=== PATIENT | female | born 1980 | race Caucasian/White ===

== ENCOUNTER 2022-09-09 11:02 | Outpatient (CLI) | payer BC ==
[2022-09-09 20:38] LABS: BASOPHILS # (AUTO) 0.1 10^3/uL (0.0-0.1); BASOPHILS % (AUTO) 0.8 %; EOSINOPHILS # (AUTO) 0.1 10^3/uL (0.0-0.7); EOSINOPHILS % (AUTO) 1.3 %; HCT - HEMATOCRIT 35.9 % (37.0-47.0); HGB - HEMOGLOBIN 11.1 g/dL (12.0-16.0); LYMPHOCYTES # (AUTO) 2.3 10^3/uL (1.5-3.5); LYMPHOCYTES % (AUTO) 21.1 %; MEAN CORPUSCULAR HEMOGLOBIN 27.5 pg (27.0-31.0); MEAN CORPUSCULAR HGB CONC 30.9 g/dL (32.0-36.0); MEAN CORPUSCULAR VOLUME 88.9 fL (81.0-99.0); MEAN PLATELET VOLUME 12.7 fL (7.9-10.8); MONOCYTES # (AUTO) 0.8 10^3/uL (0.0-1.0); MONOCYTES % (AUTO) 7.6 %; NEUTROPHILS # (AUTO) 7.3 10^3/uL (1.5-6.6); NEUTROPHILS % (AUTO) 68.3 %; PLT - PLATELET COUNT 267 10^3/uL (130-450); RED BLOOD COUNT 4.04 10^6/uL (4.20-5.40); WHITE BLOOD COUNT 10.7 x10^3/uL (4.8-10.8)
[2022-09-09 20:59] LABS: ALBUMIN 3.3 g/dL (3.2-5.5); ALBUMIN/GLOBULIN RATIO 0.9 (1.0-2.2); BILIRUBIN,TOTAL 0.2 mg/dL (0.2-1.0); CALCIUM 9.1 mg/dL (8.5-10.3); CREATININE 0.6 mg/dL (0.6-1.3); POTASSIUM 4.1 mmol/L (3.5-4.5); TOTAL PROTEIN 6.8 g/dL (6.4-8.9); URIC ACID 3.6 mg/dL (2.3-6.6)
[2022-09-09 21:04] LABS: CREATININE,URINE 47.3 mg/dL; PROTEIN/CREATININE RATIO,URINE 0.3 (<=0.2)
== END 2022-09-09 11:03 | disposition home or self-care (01) ==
LOC: LAB.S 11:02
DX: O13.9 Gestational [pregnancy-induced] hypertension without significant proteinuria, unspecified trimester (principal)
CPT/HCPCS: 36415; 80053; 82570; 84156; 84550; 85025

== ENCOUNTER 2022-09-12 15:08 | Inpatient (IN) | payer BC ==
--- NOTE | 2022-09-12 15:46 | HISTORY & PHYSICAL EXAMINATION ---
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 She is managed by a licensed club manager and water broke around 0230 this morning. She been pushing since around 4:00 this morning, but contractions have spaced and she is not making enough descent. She has good movement. No FONTANA/BV or RUQP. No vaginal bleeding. Denies nausea and vomiting. Denies urinary urgency or dysuria. All other symptoms reviewed and were negative except per HPI. Course records pending. Denies significant complications. PMH Denies significant medical complications PSH eye surgery as a child OB History G1, P0 SH Denies tobacco, alcohol, drugs Family History Noncontributory Allergies No known drug allergies Medications vitamins Physical exam: General: Alert, oriented, no acute distress Head: Normal cephalic atraumatic Eyes: PERRLA, extraocular motions intact. Respiratory: Normal rate of respiration. No accessory muscle use, normal respiratory effort. Cardiovascular: Regular rate and rhythm Abdomen: Gravid, nontender, nondistended Extremities: Normal range of motion Neuro: Oriented x3. Normal movements Psych: Appropriate mood and affect. Normal judgment and insight SVE: 10/100/+1 FHT: 150 beats per baseline, moderate variability, repetitive late decelerations [place]: 2 to 5 minutes Plan 42-year-old G1, P0 at 42 weeks 5 days gestation with prolonged second stage 1. Prolonged second stage: -Patient pushing for approximately 10 hours -Too high for operative vaginal delivery -Recommended primary low-transverse section. -2 g cefazolin, 500 mg azithromycin preoperatively. -Admit to L&D, plan for spinal anesthesia, admit labs. - section was recommended. Risks, benefits and alternatives were discussed including but not limited to infection, bleeding that may require blood products or hysterectomy for life saving measures, injury to surrounding organs including but not limited to bowel, bladder, ureters, tubes and ovaries and/or the baby. Should injury occur it could require longer/additional surgery to repair. The patient stated understanding and desired to proceed. All questions were answered posed by patient. 2. Category 2 tracing -Unsure how long her category 2 tracing has been going on prior to delivery. Contractions too frequent for oxytocin. head too high for operative delivery. We discussed options including expectant management, but limited interventions to fix repetitive late decelerations. Recommended section while baby still has good variability. 3. 42 weeks gestation - records pending 4. Advanced maternal age 5. GBS unknown 6. Meconium stained fluid Plan for Labor - Plan For Labor I expect patient to be DC'd or transferred within 96 hours.: Yes
[2022-09-12] MEDS ORDERED: LACTATED RINGERS 1,000 ML IV PRN (15:47)
[2022-09-12] MEDS ORDERED: TERBUTALINE 1 MG/ML VIAL SUBQ PRN (15:47)
[2022-09-12] MEDS ORDERED: miSOPROStoL 200 MCG TABLET PR PRN (15:47)
[2022-09-12] MEDS ORDERED: lidocaine 1% 20 ML MDV ID PRN (15:47)
[2022-09-12] MEDS ORDERED: SODIUM CHLORIDE FLUSH 0.9% 10 ML SYRINGE IVP PRN ×2 (15:47→20:27)
[2022-09-12] MEDS ORDERED: CARBOPROST TROMETHAMINE 250 MCG/ML AMP IM PRN (15:47)
[2022-09-12] MEDS ORDERED: OXYTOCIN/SODIUM CHLORIDE 500 ML IV PRN ×2 (15:47→20:27)
[2022-09-12] MEDS ORDERED: OXYTOCIN 10 UNIT/ML VIAL IM PRN (15:47)
[2022-09-12] MEDS ORDERED: NIFEdipine 10 MG CAPSULE PO PRN (15:47)
[2022-09-12] MEDS ORDERED: hydrALAZINE INJ 20 MG/ML VIAL IVP PRN ×2 (15:47)
[2022-09-12] MEDS ORDERED: METHYLERGONOVINE 0.2 MG/ML VIAL IM PRN (15:47)
[2022-09-12] MEDS ORDERED: fentaNYL 100 MCG/2 ML VIAL IVP PRN ×2 (15:47→16:54)
[2022-09-12] MEDS ORDERED: LABETALOL 20 MG/4 ML SYRINGE IVP PRN ×3 (15:47)
[2022-09-12] MEDS ORDERED: TRANEXAMIC ACID IN NACL 1,000 MG/100 ML BAG IV PRN (15:47)
[2022-09-12] MEDS ORDERED: miSOPROStoL 200 MCG TABLET BC PRN (15:47)
[2022-09-12] MEDS ORDERED: SODIUM CHLORIDE 0.9% 10 ML VIAL IVP ONE (15:58)
[2022-09-12] MEDS ORDERED: PHENYLEPHRINE 10 MG/ML VIAL ONE (15:58)
[2022-09-12] MEDS ORDERED: ePHEDrine 50 MG/ML VIAL IVP ONE (15:59)
[2022-09-12] MEDS ORDERED: SODIUM CHLORIDE FLUSH 0.9% 10 ML SYRINGE IVP SCH (16:00)
[2022-09-12] MEDS ORDERED: AZITHROMYCIN INJ 500 MG in SODIUM CHLORIDE 0.9% 250 ML IV ONE (16:00)
[2022-09-12] MEDS ORDERED: ceFAZolin 2 GM in SODIUM CHLORIDE 0.9% MINIBAG 100 ML IV SCH (16:00)
[2022-09-12] MEDS ORDERED: LACTATED RINGERS 1,000 ML IV SCH ×4 (16:00→21:00)
[2022-09-12] MEDS ORDERED: MORPHINE PF 5 MG/10 ML VIAL ONE (16:12)
--- NOTE | 2022-09-12 16:12 | ANESTHESIA ---
Pre-Anesthesia VS, & Labs - Diagnosis failure to progress - Procedure primary c/s - NPO Last Fluid Intake: t/o day - Is Patient ?: Yes - Lab Results Lab results reviewed: Yes Home Medications and Allergies Active Medications Carboprost Tromethamine (Carboprost Tromethamine 250 Mcg/Ml Amp) 250 mcg IM .ONCE PRN PRN Reason: Hemorrhage Fentanyl (Fentanyl 100 Mcg/2 Ml Vial) 50 mcg IVP Q1H PRN PRN Reason: Severe Pain (score 7-10) Hydralazine HCl (Hydralazine Inj 20 Mg/Ml Vial) 10 mg IVP .ONCE PRN; Protocol PRN Reason: SBP> or= 160 OR DBP> or= 110 Hydralazine HCl (Hydralazine Inj 20 Mg/Ml Vial) 5 - 10 mg IVP Q20M PRN; Protocol PRN Reason: SBP> or= 160 OR DBP> or= 110 Lactated Ringer's (Lr) 1,000 mls @ 125 mls/hr IV .Q8H ANDI Cefazolin Sodium 2 gm/ Sodium (Chloride) 100 mls @ 200 mls/hr IV Q8H ANDI Azithromycin 500 mg/ Sodium (Chloride) 250 mls @ 250 mls/hr IV ONCE ANDI Oxytocin/Sodium Chloride (Pitocin/Sodium Chloride) 500 mls @ 999 mls/hr IV PRN PRN; Protocol PRN Reason: POST- HEMORR PREVENTION Tranexamic Acid (Tranexamic 1,000 Mg/100ml-Nacl) 1,000 mg in 100 mls @ 600 mls/hr IV Q30M PRN PRN Reason: EBL >1200mL and within 3hr Lactated Ringer's (Lr) 1,000 mls @ 125 mls/hr IV .Q8H ANDI Lactated Ringer's (Lr) 1,000 mls @ 999 mls/hr IV PRN PRN PRN Reason: PER PHYSICIAN ORDER Labetalol HCl (Labetalol 20 Mg/4 Ml Syringe) 20 mg IVP .ONCE PRN; Protocol PRN Reason: SBP> or= 160 OR DBP> or= 110 Labetalol HCl (Labetalol 20 Mg/4 Ml Syringe) 20 - 80 mg IVP Q10M PRN; Protocol PRN Reason: SBP> or= 160 OR DBP> or= 110 Labetalol HCl (Labetalol 20 Mg/4 Ml Syringe) 20 - 40 mg IVP Q10M PRN; Protocol PRN Reason: SBP> or= 160 OR DBP> or= 110 Lidocaine HCl (Lidocaine 1% 20 Ml Mdv) 20 ml ID .ONCE PRN PRN Reason: PERINEAL REPAIR Stop: 09/15/22 15:47 Methylergonovine Maleate (Methylergonovine 0.2 Mg/Ml Vial) 0.2 mg IM .ONCE PRN PRN Reason: Hemorrhage Misoprostol (Misoprostol 200 Mcg Tablet) 600 mcg BC .ONCE PRN PRN Reason: Hemorrhage Misoprostol (Misoprostol 200 Mcg Tablet) 800 mcg MO .ONCE PRN PRN Reason: Hemorrhage Nifedipine (Nifedipine 10 Mg Capsule) 10 - 20 mg PO Q20M PRN; Protocol PRN Reason: SBP> or= 160 OR DBP> or= 110 Oxytocin (Oxytocin 10 Unit/Ml Vial) 10 unit IM .ONCE PRN PRN Reason: Step One if no IV access. Sodium Chloride (Sodium Chloride Flush 0.9% 10 Ml Syringe) 10 ml IVP Q8H ANDI Sodium Chloride (Sodium Chloride Flush 0.9% 10 Ml Syringe) 10 ml IVP PRN PRN PRN Reason: NEEDED PER PROVIDER ORDERS Terbutaline Sulfate (Terbutaline 1 Mg/Ml Vial) 0.25 mg SUBQ .ONCE PRN PRN Reason: Tachystole Anes History & Medical History - Anesthetic History Anesthesia Complications: reports: No previous complications Family history of Anesthesia Complications: Denies Family history of Malignant Hyperthermia: Denies - Medical History Cardiovascular: reports: None - Surgical History Other Past Surgical History: wisdom teeth extraction Exam General: Alert, Oriented x3, Cooperative Dental: WNL Mouth Openin Fingerbreadth Neck Mobility: Normal Mallampati classification: II Thyromental Distance: 4-6 cm Respiratory: Lungs clear, Normal breath sounds, No respiratory distress Cardiovascular: Regular rate Neurological: Normal speech Mental/Cognitive Status: Alert/Oriented X3, Normal for patient Cognitive Status: Within normal limits Plan Anesthesia Type: Spinal Regional Block: Per Surgeon's request for Post Op pain control (opioid in spinal) Consent for Procedure(s) Verified and Reviewed: Yes Code Status: Attempt Resuscitation ASA classification: 2-Mild systemic disease Is this case an emergency?: Yes
[2022-09-12] MEDS ORDERED: ceFAZolin 2 GM VIAL ONE (16:23)
[2022-09-12] MEDS ORDERED: fentaNYL 100 MCG/2 ML VIAL IT ONE (16:29)
[2022-09-12] MEDS ORDERED: MORPHINE PF 5 MG/10 ML VIAL IT ONE (16:29)
[2022-09-12] MEDS ORDERED: OXYTOCIN 10 UNIT/ML VIAL ONE (16:48)
[2022-09-12] MEDS ORDERED: HYDROmorphone 0.5 MG/0.5 ML SYRINGE IVP PRN (16:54)
[2022-09-12] MEDS ORDERED: NALBUPHINE 10 MG/ML AMP IVP PRN (16:54)
[2022-09-12] MEDS ORDERED: ONDANSETRON 4 MG/2 ML VIAL IVP PRN ×2 (16:54)
[2022-09-12] MEDS ORDERED: ePHEDrine 50 MG/ML VIAL IVP PRN ×2 (16:54)
[2022-09-12] MEDS ORDERED: NALOXONE 0.4 MG/ML VIAL IVP PRN ×2 (16:54)
[2022-09-12] MEDS ORDERED: ATROPINE ABBOJECT 1 MG/10 ML SYRINGE IVP PRN (16:54)
[2022-09-12] MEDS ORDERED: METOCLOPRAMIDE 10 MG/2 ML VIAL IVP PRN ×2 (16:54)
[2022-09-12] MEDS ORDERED: MORPHINE 2 MG/ML CARPUJECT IVP PRN (16:54)
[2022-09-12] MEDS ORDERED: diphenhydrAMINE INJ 50 MG/ML VIAL IVP PRN (16:54)
[2022-09-12] MEDS ORDERED: KETOROLAC 30 MG/ML VIAL ONE (17:17)
[2022-09-12] MEDS ORDERED: LACTATED RINGERS 200 ML IV ONE (17:57)
--- NOTE | 2022-09-12 19:06 | ANESTHESIA POST OP EVALUATION ---
Anesthesia Post Eval - Post Anesthesia Eval Vitals: Last Vital Signs Temp 36.7 C 09/12/22 18:30 Pulse 110 H 09/12/22 18:30 Resp 18 09/12/22 18:30 BP 129/83 H 09/12/22 18:30 Pulse Ox 100 09/12/22 18:30 O2 Flow Rate CV Function Including HR & BP: Stable Pain Control: Satisfactory Nausea & Vomiting: Negative Mental Status: Baseline Respiratory Status: Airway Patent Hydration Status: Satisfactory Anesthesia Complications: None
[2022-09-12 19:08] LABS: BASOPHILS # (AUTO) 0.1 10^3/uL (0.0-0.1); BASOPHILS % (AUTO) 0.8 %; EOSINOPHILS # (AUTO) 0.1 10^3/uL (0.0-0.7); EOSINOPHILS % (AUTO) 0.9 %; HCT - HEMATOCRIT 33.5 % (37.0-47.0); HGB - HEMOGLOBIN 10.6 g/dL (12.0-16.0); LYMPHOCYTES % (AUTO) 6.6 %; MEAN CORPUSCULAR HEMOGLOBIN 26.6 pg (27.0-31.0); MEAN CORPUSCULAR HGB CONC 31.6 g/dL (32.0-36.0); MEAN CORPUSCULAR VOLUME 84.2 fL (81.0-99.0); MONOCYTES # (AUTO) 0.5 10^3/uL (0.0-1.0); MONOCYTES % (AUTO) 3.1 %; NEUTROPHILS # (AUTO) 13.5 10^3/uL (1.5-6.6); NEUTROPHILS % (AUTO) 87.9 %; PLT - PLATELET COUNT 277 10^3/uL (130-450); RED BLOOD COUNT 3.98 10^6/uL (4.20-5.40); RED CELL DISTRIBUTION WIDTH 15.6 % (12.0-15.0); WHITE BLOOD COUNT 15.4 x10^3/uL (4.8-10.8)
--- NOTE | 2022-09-12 20:26 | OPERATIVE REPORT ---
Operative Report - General Admit Date: 09/12/22 Procedure Date: 09/12/22 Planned Procedure: Failure to descend 42 weeks gestation Term labor Pre-Op Diagnosis: Primary low-transverse section Procedure Performed: Failure to descend 42 weeks gestation Term labor Status post primary low-transverse section Delivery of live vigil Post Op Diagnosis: Primary low-transverse section - Procedure Note Primary Surgeon: Iraj Chauhan MD Secondary Surgeon: ABEL Freedman Anesthesia Provider: Heidy Rainey CRNA Anesthesia Technique: Spinal Pathology: None Estimated Blood Loss (mL): 800 Findings: Normal-appearing uterus, tubes, ovaries Complications: None - Other Other Information/Narrative: section was recommended. Risks, benefits and alternatives were discussed including but not limited to infection, bleeding that may require blood products or hysterectomy for life saving measures, injury to surrounding organs including but not limited to bowel, bladder, ureters, tubes and ovaries and/or the baby. Should injury occur it could require longer/additional surgery to repair. The patient stated understanding and desired to proceed. All questions were answered posed by patient. Prior to the procedure OR, 2 grams of cefazolin IV and during the procedure 500 mg azithromycin were administered. The patient was taken to the operating room where regional anesthesia was found to be adequate. She was then prepared and draped in the usual sterile fashion in the dorsal supine position with a leftward tilt displacing the uterus. Young was draining to gravity. SCDs were on bilateral lower extremities. A pfannenstiel skin incision was then made with the scalpel and carried through to the underlying layer of fascia. The fascia was incised in the midline and the incision extended laterally with the Bailey scissors. The superior aspect of the facial incision was then grasped with the Robin clamps, elevated and the underlying rectus muscles dissected off sharply. Attention was then turned to the inferior aspect of this incision which in a similar fashion was grasped, elevated with the Robin clamps and the rectus muscle dissected off sharply. The rectus muscles were in the midline. The peritoneum identified, grasped with the pick-ups and entered sharply with the Metzenbaum scissors. The peritoneal incision was then extended superiorly and inferiorly with good visualization of the bladder. The bladder blade was inserted. The vesicouterine peritoneum was identified, grasped with the pick-ups, and entered sharply with Metzenbaum scissors. This incision was then extended laterally and the bladder flap created digitally. The bladder blade was reinserted. The lower uterine segment was identified and incised in a transverse fashion with the scalpel. The uterine incision was then extended bluntly laterally. Entry into the uterus demonstrated meconium stained fluid. The bladder blade was removed. The fetus was in a cephalic presentation with a right transverse presentation deep in the pelvis. While this was a second stage extraction, most of the presenting part was caput. Elevating the head allowed the infants head to be delivered atraumatically. The anterior shoulders were delivered followed by the posterior shoulders then the remainder of the body. The infants mouth and nose were bulb suctioned. The umbilical cord was clamped times two and cut. The infant was handed to the pediatric team. The placenta was removed with gentle traction. Oxytocin were added to IVF and allowed to run freely. The uterus was exteriorized and cleared of all clots and debris. The uterine incision was inspected and found to have bilateral short extensions towards the lateral borders and was repaired with 0 Vicryl in a running, locked fashion. A second imbricating layer was performed. Upon inspection, the repaired hysterotomy was found to be hemostatic. The uterus was firm and returned to the abdomen. The gutters were cleared of all clots and debris. The peritoneum was closed with a running suture of 2-0 Vicryl. The fascia was reapproximated with 0 Vicryl in a running fashion. The subcutaneous tissue was closed with 2-0 Vicryl. The skin was closed in a subcuticular fashion with 4-0 Monocryl. The patient tolerated the procedure well. Sponge, lap and needle counts were correct times three. The patient was taken to the recovery room in stable condition. I appreciate the assistance of Chhaya Robertson during this procedure, and the assistance in retraction, visualization, dissection, and overall assistance during the case were instrumental to the patient's wellbeing.
[2022-09-12] MEDS ORDERED: oxyCODONE 5 MG TABLET PO PRN (20:27)
[2022-09-12] MEDS ORDERED: ONDANSETRON ODT 4 MG TABLET TL PRN (20:27)
[2022-09-12] MEDS ORDERED: SIMETHICONE CHEW 80 MG TABLET PO PRN (20:27)
[2022-09-12] MEDS: KETOROLAC 30 MG/ML VIAL IVP SCH ×2 (21:53→23:27)
[2022-09-12] MEDS: ACETAMINOPHEN 500 MG TABLET PO SCH ×2 (21:54→22:04)
[2022-09-12] MEDS: DOCUSATE SODIUM 100 MG CAPSULE PO SCH (22:49)
[2022-09-12] MEDS: SODIUM CHLORIDE FLUSH 0.9% 10 ML SYRINGE IVP SCH (23:28)
[2022-09-13] MEDS ORDERED: KETOROLAC 30 MG/ML VIAL IVP SCH (05:30)
[2022-09-13 05:51] LABS: EOSINOPHILS % (AUTO) 0.1 %; RED CELL DISTRIBUTION WIDTH 15.5 % (12.0-15.0)
[2022-09-13 05:54] LABS: BASOPHILS # (AUTO) 0.1 10^3/uL (0.0-0.1); BASOPHILS % (AUTO) 0.4 %; HCT - HEMATOCRIT 26.6 % (37.0-47.0); HGB - HEMOGLOBIN 8.8 g/dL (12.0-16.0); LYMPHOCYTES # (AUTO) 1.4 10^3/uL (1.5-3.5); LYMPHOCYTES % (AUTO) 7.7 %; MEAN CORPUSCULAR HEMOGLOBIN 27.8 pg (27.0-31.0); MEAN CORPUSCULAR HGB CONC 33.1 g/dL (32.0-36.0); MEAN CORPUSCULAR VOLUME 83.9 fL (81.0-99.0); MEAN PLATELET VOLUME 11.7 fL (7.9-10.8); MONOCYTES % (AUTO) 5.9 %; NEUTROPHILS # (AUTO) 15.1 10^3/uL (1.5-6.6); NEUTROPHILS % (AUTO) 85.1 %; PLT - PLATELET COUNT 216 10^3/uL (130-450); RED BLOOD COUNT 3.17 10^6/uL (4.20-5.40); WHITE BLOOD COUNT 17.8 x10^3/uL (4.8-10.8)
[2022-09-13 05:55] LABS: SLIDE REVIEW? Indicated
[2022-09-13] MEDS: ACETAMINOPHEN 500 MG TABLET PO SCH ×3 (06:15→22:37)
[2022-09-13 06:20] LABS: PLATELET ESTIMATE, MANUAL NORMAL (130-450,000) (NORMAL); PLATELET MORPHOLOGY NORMAL APPEARANCE (NORMAL); RBC MORPHOLOGY (MULTIPLE) NORMAL APPEARANCE (NORMAL); WBC MORPHOLOGY (MULTIPLE) NORMAL APPEARANCE (NORMAL)
[2022-09-13] MEDS: SODIUM CHLORIDE FLUSH 0.9% 10 ML SYRINGE IVP SCH (10:00)
[2022-09-13] MEDS: DOCUSATE SODIUM 100 MG CAPSULE PO SCH ×2 (10:00→21:00)
[2022-09-13] MEDS: IBUPROFEN 600 MG TABLET PO SCH ×2 (12:04→18:19)
--- NOTE | 2022-09-13 18:51 | PROVIDER PROGRESS NOTE ---
Subjective - Prog Note Date Prog Note Date: 09/13/22 - Subjective Pt reports feeling: Improved Subjective: Subjective Patient reports she is doing well. Lochia appropriate. Denies heavy bleeding. Ambulating. Pelvic and abdominal pain well-controlled. Tolerating oral intake. Diet: Regular. Has not voided since Young removal. Has not paid attention to passing flatus. Denies BM. Patient is bonding with baby in room Breast feeding going well. Denies feeling lightheaded, dizzy or excessively fatigued. Control: Declines need. This from assisted reproductive therapy. Objective General: Alert, oriented, no apparent distress. Cardiovascular: Regular rate. Regular rhythm. Lungs: No increased work of breathing. Abdomen: Uterus firm. Below umbilicus. No guarding or rebound. Extremities: No pain on palpation. No cords palpated. Distal pulses intact. Incision: Clean, dry, and intact. Assessment and Plan day 1. -Routine care -Anticipate discharge tomorrow Acute blood loss anemia -Patient started hemoglobin of 10, dropped to 8. No signs or symptoms at this time. We will continue to monitor. Objective - Vital Signs/Intake & Output Vital Signs: Vital Signs x48h Temp Pulse Resp BP Pulse Ox 09/13/22 16:48 98.2 F 96 18 123/61 100 09/13/22 12:26 98.4 F 106 H 18 108/61 99 Intake & Output: Intake & Output 09/10/22 09/11/22 09/12/22 09/13/22 23:59 23:59 23:59 23:59 Intake Total 0 1197 Output Total 400 1290 Balance -400 -93 - Lab Results Fish Bones: 09/13/22 05:46 Other Labs: Lab Results x24hrs 09/13/22 09/12/22 09/12/22 Range/Units 05:46 18:47 18:47 WBC 17.8 H 15.4 H (4.8-10.8) x10^3/uL RBC 3.17 L 3.98 L (4.20-5.40) 10^6/uL Hgb 8.8 L 10.6 L (12.0-16.0) g/dL Hct 26.6 L 33.5 L (37.0-47.0) % MCV 83.9 84.2 (81.0-99.0) fL MCH 27.8 26.6 L (27.0-31.0) pg MCHC 33.1 31.6 L (32.0-36.0) g/dL RDW 15.5 H 15.6 H (12.0-15.0) % Plt Count 216 277 (130-450) 10^3/uL MPV 11.7 H 12.0 H (7.9-10.8) fL Neut # (Auto) 15.1 H 13.5 H (1.5-6.6) 10^3/uL Lymph # (Auto) 1.4 L 1.0 L (1.5-3.5) 10^3/uL [place] # (Auto) 1.0 0.5 (0.0-1.0) 10^3/uL Eos # (Auto) 0.0 0.1 (0.0-0.7) 10^3/uL Baso # (Auto) 0.1 0.1 (0.0-0.1) 10^3/uL Absolute Nucleated RBC 0.00 0.00 x10^3/uL Nucleated RBC % 0.0 0.0 /100WBC Manual Slide Review Indicated WBC Morphology NORMAL APPEARANCE (NORMAL) Platelet Estimate NORMAL (130-450,000) (NORMAL) Platelet Morphology NORMAL APPEARANCE (NORMAL) RBC Morph Micro Appear NORMAL APPEARANCE (NORMAL) Blood Type O POSITIVE Blood Type Recheck Antibody Screen NEGATIVE 09/12/22 Range/Units 15:55 WBC (4.8-10.8) x10^3/uL RBC (4.20-5.40) 10^6/uL Hgb (12.0-16.0) g/dL Hct (37.0-47.0) % MCV (81.0-99.0) fL MCH (27.0-31.0) pg MCHC (32.0-36.0) g/dL RDW (12.0-15.0) % Plt Count (130-450) 10^3/uL MPV (7.9-10.8) fL Neut # (Auto) (1.5-6.6) 10^3/uL Lymph # (Auto) (1.5-3.5) 10^3/uL [place] # (Auto) (0.0-1.0) 10^3/uL Eos # (Auto) (0.0-0.7) 10^3/uL Baso # (Auto) (0.0-0.1) 10^3/uL Absolute Nucleated RBC x10^3/uL Nucleated RBC % /100WBC Manual Slide Review WBC Morphology (NORMAL) Platelet Estimate (NORMAL) Platelet Morphology (NORMAL) RBC Morph Micro Appear (NORMAL) Blood Type Blood Type Recheck O POSITIVE Antibody Screen
[2022-09-13] MEDS ORDERED: IBUPROFEN 600 MG TABLET PO SCH (21:00)
[2022-09-14] MEDS: IBUPROFEN 600 MG TABLET PO SCH ×2 (00:36→06:34)
[2022-09-14] MEDS: ACETAMINOPHEN 500 MG TABLET PO SCH (06:33)
--- NOTE | 2022-09-14 07:39 | PROVIDER PROGRESS NOTE ---
Subjective - Prog Note Date Prog Note Date: 09/14/22 Prog Note Time: 07:37 - Subjective Pt reports feeling: Improved Subjective: Pt well, lochia appropriate, freya PO, + void, + flat, + ambulation Feeding going well -- breast Pt reports ready to go home, has safe home to return to Reviewed: discharge instructions, post- instructions, follow up instructions, precautions, precautions regarding: feeding, depression, bleeding, and anticipated post- course All questions answered Pt verbalized understanding VSS NAD Conjunctiva pink, pale sclera +S1, S2 CTAB Breasts soft, not engorged, no nipple cracking Abd soft, NT, ND Fundus firm below umbilicus INC: CDI, steristrips on. Perineum bleeding appropriate Ext: neg CCE Objective - Vital Signs/Intake & Output Vital Signs: Vital Signs x48h Temp Pulse Resp BP Pulse Ox 09/14/22 00:20 98.4 F 104 H 18 112/58 L 98 Intake & Output: Intake & Output 09/11/22 09/12/22 09/13/22 09/14/22 23:59 23:59 23:59 23:59 Intake Total 0 1197 Output Total 400 1290 Balance -400 -93 - Lab Results Fish Bones: 09/13/22 05:46 Assessment/Plan - Problem List (1) state Impression: all milestones met precautions reviewed ready for discharge home. (2) Status post section routine follow-up Impression: precautions reviewed all milestones met precautions reviewed (3) Acute blood loss anemia Impression: doing well precautions reviewed will d/c home with iron.
--- NOTE | 2022-09-14 07:48 | Discharge Plan ---
Discharge Plan Problem Reviewed?: Yes Disposition: Home, Self Care Condition: Good Prescriptions: Acetaminophen [Acetaminophen Extra Strength] 1,000 mg PO Q8H PRN #60 tablet PRN Reason: Pain Docusate Sodium 100Mg Capsule [Colace 100Mg Capsule] 100 - 200 mg PO BID PRN #60 cap PRN Reason: Constipation Ibuprofen [Motrin] 600 mg PO Q6H PRN #30 tab PRN Reason: Pain Diet: Regular Activity Restrictions: post restrictions Shower Restrictions: No Driving Restrictions: No Weight Bearing: Full Weight Instruction Topics: , Depression , Childbirth Breast Care Additional Instructions or Follow Up instructions: 1 week wound check. No Smoking: If you smoke, Please STOP! Call for help. Follow-up with: NEELA GARCIA [Primary Care Provider] -
--- NOTE | 2022-09-14 07:51 | DISCHARGE SUMMARY ---
"Discharge Summary Admit Date: 09/12/22 Discharge Date: 09/14/22 Discharging Provider: tiff Primary Care Provider: Tien / midwifery care Code Status: Attempt Resuscitation Condition at Discharge: Good Discharge Disposition: 01 Home, Self Care - DIAGNOSES Admission Diagnoses: post dates arrest of descent Discharge Diagnoses with Status of Each Condition: post dates - resolved arrest of descent - resolved post section - met all milestones ready for d/c home - precautions reviewed acute blood loss anemia - d/c home with iron - asymptomatic - precautions reviewed - HPI History of Present Illness: admitted from home labor proceeded to 1LCTS for details see op note uncomplicated routine PO care D/C home POD#2 with baby - CONSULTS | PROCEDURES Procedures: 1LTCS PO care - HOSPITAL COURSE Hospital Course: admitted from home labor proceeded to 1LCTS for details see op note uncomplicated routine PO care D/C home POD#2 with baby - ALLERGIES Allergies/Adverse Reactions: Allergies Allergy/AdvReac Type Severity Reaction Status Date / Time No Known Drug Allergies Allergy Verified 09/12/22 18:33 - MEDICATIONS Home Medications: Ambulatory Orders Medication Instructions Recorded Confirmed Acetaminophen [Acetaminophen Extra 1,000 mg PO Q8H PRN #60 tablet 09/14/22 Strength] Docusate Sodium 100Mg Capsule 100 - 200 mg PO BID PRN #60 cap 09/14/22 [Colace 100Mg Capsule] Ibuprofen [Motrin] 600 mg PO Q6H PRN #30 tab 09/14/22 - PHYSICAL EXAM AT DISCHARGE General Appearance: positive: No acute distress Eyes Bilateral: positive: Normal inspection ENT: positive: ENT inspection nml Neck: positive: Nml inspection Respiratory: positive: Chest non-tender, No respiratory distress, Breath sounds nml Cardiovascular: positive: Regular rate & rhythm, No murmur, No gallop Abdomen: positive: Non-tender ([place] 2cm below umb, and no breast engorgement) Skin: positive: Color nml, No rash Extremities: positive: Non-tender, Pedal edema (+1) Neurologic/Psychiatric: positive: Oriented x3 - LABS Result Diagrams: 09/13/22 05:46 - QUALITY (Female Hip Fx Only) Was patient sent home on osteoporosis medication?: No - FOLLOW UP Follow Up: 1 week wound check and ped care per peds - TIME SPENT Time Spent in Discharge (Minutes): 30"
[2022-09-14 10:52] VITALS: BP 111/54; O2SAT 100
--- NOTE | 2022-09-14 12:57 | Labor Flowsheet ---
Labor Flowsheet Datetime Report Generated by CPN: 09/14/2022 12:57 Datetime: 09/12/2022 20:18 Membranes Ruptured Date/Time: 09/12/2022 02:12 Membranes Rupture Method: Spontaneous Amniotic Fluid Color: Light Meconium Amniotic Fluid Odor: Normal Datetime: 09/12/2022 16:17 UTERINE ACTIVITY Frequency (min): 2-3 Duration (sec): 60-100 Pattern: Normal: <= 5 Contractions in 10 Minutes FHR Baseline Rate : 160 Variability: Minimal - Undetectable to <=5 bpm Accelerations: None Decelerations: Late Category: Category II PATIENT CARE Patient Care Comments: Pt taken off monitor and transferred to OR Datetime: 09/12/2022 16:00 Resting Tone (Palpate): Relaxed Datetime: 09/12/2022 15:45 Contraction Comments: Pt declining interventions to reposition d/t late and variable decels Datetime: 09/12/2022 15:33 VAGINAL EXAM Dilatation (cm): 10.0 Effacement (%): 100 Station: 1 Exam by: Iraj Chauhan, MD Datetime: 09/12/2022 15:30 ASSESSMENT A Monitor Mode: External US
== END 2022-09-14 12:25 | disposition home or self-care (01) | DRG 787 ==
LOC: WFO 15:08 → FBP 15:09 → WFO 15:46 → FBP 15:47
PROVIDERS: ADMIT Obstetrics & Gynecology; ATTEND Obstetrics & Gynecology
PROC: 10D00Z1 Extraction of Products of Conception, Low, Open Approach (ICD-10-PCS; principal; 2022-09-12 16:00)
DX: O32.4XX0 Maternal care for high head at term, not applicable or unspecified (principal); D62 Acute posthemorrhagic anemia; Z3A.42 42 weeks gestation of pregnancy; Z37.0 Single live birth; O48.0 Post-term pregnancy; O63.1 Prolonged second stage (of labor); O77.0 Labor and delivery complicated by meconium in amniotic fluid; O90.81 Anemia of the puerperium
CPT/HCPCS: 36415; 85025; 86850; 86900; 86901; A9270; J2274; J7120